=== PATIENT | female | born 1935 | race Caucasian/White ===

== ENCOUNTER 2023-07-19 07:54 | Emergency (ER) | payer MEDICARE ==
[~2023-07-19] VITALS: Ht 157.5 cm; Wt 81.0 kg
[2023-07-19 08:02] VITALS: BP 107/72; PULSE 68; RESP 16; TEMP 98.1
[2023-07-19] MEDS ORDERED: DONE-51 PO (08:09)
[2023-07-19] MEDS ORDERED: MONT-35 PO (08:09)
[2023-07-19] MEDS ORDERED: APIX5TAB PO (08:09)
[2023-07-19] MEDS ORDERED: PANT-31 PO (08:09)
[2023-07-19] MEDS ORDERED: VALS80TA2 PO (08:09)
[2023-07-19] MEDS ORDERED: ROSU20TA73 PO (08:09)
[2023-07-19] MEDS ORDERED: FERR324T12 PO (08:09)
[2023-07-19] MEDS ORDERED: DULO-113 PO (08:09)
[2023-07-19] MEDS ORDERED: ACET-2895 PO (08:09)
== END 2023-07-19 10:40 | disposition home or self-care (01) ==
LOC: EMS 07:54
DX: S82.892A Other fracture of left lower leg, initial encounter for closed fracture (principal); I48.91 Unspecified atrial fibrillation; I11.0 Hypertensive heart disease with heart failure; I50.9 Heart failure, unspecified; Z90.49 Acquired absence of other specified parts of digestive tract; Z90.710 Acquired absence of both cervix and uterus; W01.0XXA Fall on same level from slipping, tripping and stumbling without subsequent striking against object, initial encounter; Y93.89 Activity, other specified; Y92.89 Other specified places as the place of occurrence of the external cause; Y99.8 Other external cause status
CPT/HCPCS: 99283